=== PATIENT | male | born 1955 | race Caucasian/White ===

== ENCOUNTER 2017-12-26 16:33 | Inpatient (IN) | payer OTHER ==
[~2017-12-26] VITALS: Ht 177.8 cm; Wt 113.4 kg
== END 2018-01-16 18:30 | disposition home or self-care (01) | DRG 194 ==
LOC: ER 16:33 → EDBD 16:41 → SEC-K 17:00 → MEDJ 17:00 → SURH 23:26 → SEC-K 12-27 03:23 → MEDJ 12-27 11:50
PROC: 4A033R1 Measurement of Arterial Saturation, Peripheral, Percutaneous Approach (ICD-10-PCS; principal; 2017-12-26)
PROC: 3E0F7GC Introduction of Other Therapeutic Substance into Respiratory Tract, Via Natural or Artificial Opening (ICD-10-PCS; 2017-12-26)
PROC: BW24ZZZ Computerized Tomography (CT Scan) of Chest and Abdomen (ICD-10-PCS; 2017-12-27)
PROC: BB24ZZZ Computerized Tomography (CT Scan) of Bilateral Lungs (ICD-10-PCS; 2018-01-07)
DX: J09.X1 Influenza due to identified novel influenza A virus with pneumonia (principal); J98.11 Atelectasis; R04.2 Hemoptysis; R09.02 Hypoxemia; E78.00 Pure hypercholesterolemia, unspecified; R73.02 Impaired glucose tolerance (oral); E66.8 Other obesity; J18.1 Lobar pneumonia, unspecified organism

== ENCOUNTER 2019-10-07 09:29 | Outpatient (CLI) | payer OTHER | END 2019-10-07 09:50 | disposition home or self-care (01) | LOC: RAD 09:29 | DX: M25.512 Pain in left shoulder (principal) ==